=== PATIENT | female | born 1955 | race Caucasian/White ===

== ENCOUNTER 2017-02-24 13:56 | Outpatient (CLI) | payer MEDICARE, OTHER ==
[2015-12-28 14:27] VITALS: BP 145/82
[2017-02-24 14:56] LABS: BASOPHILS % 0.6 (0.0-1.5); EOSINOPHILS % 2.1 % (0.0-6.8); LYMPHOCYTES # 1.7 # k/uL (0.6-4.0); MEAN CORPUSCULAR HEMOGLOBIN 27.9 pg (28.0-34.0); MONOCYTES # 0.2 # k/uL (0.0-0.9); MONOCYTES % 3.9 % (0.0-11.0); NEUTROPHILS # 3.4 # k/uL (1.4-7.7)
[2017-02-24 14:57] LABS: APPEARANCE,URINE Clear (CLEAR); COLOR,URINE Yellow (YELLOW); OCCULT BLOOD,URINE Trace-intact (NEGATIVE); UROBILINOGEN URINE 0.2 Eu (0.2-1.0)
[2017-02-24 15:19] LABS: eGFR (African) > 60; eGFR (Non-African) > 60
== END 2017-02-24 13:57 ==
LOC: NEPHRO 13:56
PROVIDERS: ATTEND Internal Medicine Nephrology
DX: E11.9 Type 2 diabetes mellitus without complications (principal); I10 Essential (primary) hypertension
CPT/HCPCS: 36415; 80053; 81002; 83036; 85025; G0463

== ENCOUNTER 2017-05-05 15:17 | Outpatient (CLI) | payer MEDICARE, OTHER ==
[2015-12-28 14:27] VITALS: BP 145/82
== END 2017-05-05 15:18 ==
LOC: NEPHRO 15:17
PROVIDERS: ATTEND Internal Medicine Nephrology
DX: E11.9 Type 2 diabetes mellitus without complications (principal); Z98.84 Bariatric surgery status
CPT/HCPCS: G0463

== ENCOUNTER 2017-05-13 10:32 | Outpatient (CLI) | payer MEDICARE, OTHER ==
[2015-12-28 14:27] VITALS: BP 145/82
[2017-05-13 10:59] LABS: eGFR (African) > 60; eGFR (Non-African) > 60
== END 2017-05-13 10:33 ==
LOC: LAB 10:32
PROVIDERS: ATTEND Internal Medicine Nephrology
DX: E11.9 Type 2 diabetes mellitus without complications (principal)
CPT/HCPCS: 36415; 80053; 83036

== ENCOUNTER 2017-09-15 14:57 | Outpatient (CLI) | payer MEDICARE, OTHER ==
[2015-12-28 14:27] VITALS: BP 145/82
== END 2017-09-15 15:00 ==
LOC: NEPHRO 14:57
PROVIDERS: ATTEND Internal Medicine Nephrology
DX: M06.9 Rheumatoid arthritis, unspecified (principal); R73.9 Hyperglycemia, unspecified; Z98.84 Bariatric surgery status
CPT/HCPCS: G0463

== ENCOUNTER 2017-12-15 14:47 | Outpatient (CLI) | payer MEDICARE, OTHER ==
[2015-12-28 14:27] VITALS: BP 145/82
== END 2017-12-15 14:50 ==
LOC: NEPHRO 14:47
PROVIDERS: ATTEND Internal Medicine Nephrology
DX: I10 Essential (primary) hypertension (principal); E11.9 Type 2 diabetes mellitus without complications
CPT/HCPCS: G0463

== ENCOUNTER 2018-05-31 08:57 | Outpatient (CLI) | payer MEDICARE, OTHER ==
[2015-12-28 14:27] VITALS: BP 145/82
[2018-05-31 09:25] LABS: BASOPHILS % 0.5 (0.0-1.5); EOSINOPHILS % 3.9 % (0.0-6.8); MEAN CORPUSCULAR HEMOGLOBIN 30.1 pg (28.0-34.0); MONOCYTES % 4.3 % (0.0-11.0)
[2018-05-31 09:43] LABS: eGFR (African) > 60; eGFR (Non-African) > 60
== END 2018-05-31 09:00 ==
LOC: LAB 08:57
PROVIDERS: ATTEND Internal Medicine Nephrology
DX: I10 Essential (primary) hypertension (principal); E11.9 Type 2 diabetes mellitus without complications
CPT/HCPCS: 36415; 80053; 83036; 85025

== ENCOUNTER 2018-06-01 14:11 | Outpatient (CLI) | payer MEDICARE, OTHER ==
[2015-12-28 14:27] VITALS: BP 145/82
== END 2018-06-01 14:13 ==
LOC: NEPHRO 14:11
PROVIDERS: ATTEND Internal Medicine Nephrology
DX: R73.9 Hyperglycemia, unspecified (principal); I10 Essential (primary) hypertension
CPT/HCPCS: G0463

== ENCOUNTER 2019-02-01 15:06 | Outpatient (CLI) | payer MEDICARE, OTHER ==
[2015-12-28 14:27] VITALS: BP 145/82
== END 2019-02-01 15:08 ==
LOC: NEPHRO 15:06
PROVIDERS: ATTEND Internal Medicine Nephrology
DX: N17.9 Acute kidney failure, unspecified (principal); I10 Essential (primary) hypertension; E11.8 Type 2 diabetes mellitus with unspecified complications; E66.01 Morbid (severe) obesity due to excess calories; M06.9 Rheumatoid arthritis, unspecified; Z68.31 Body mass index [BMI] 31.0-31.9, adult
CPT/HCPCS: G0463

== ENCOUNTER 2019-06-14 14:51 | Outpatient (CLI) | payer MEDICARE, OTHER ==
[2015-12-28 14:27] VITALS: BP 145/82
== END 2019-06-14 14:53 ==
LOC: NEPHRO 14:51
PROVIDERS: ATTEND Internal Medicine Nephrology
DX: M00.9 Pyogenic arthritis, unspecified (principal); I10 Essential (primary) hypertension
CPT/HCPCS: 99213

== ENCOUNTER 2019-08-16 14:41 | Outpatient (CLI) | payer MEDICARE, OTHER ==
[2015-12-28 14:27] VITALS: BP 145/82
== END 2019-08-16 15:15 ==
LOC: NEPHRO 14:41
PROVIDERS: ATTEND Internal Medicine Nephrology
DX: E11.9 Type 2 diabetes mellitus without complications (principal); I10 Essential (primary) hypertension
CPT/HCPCS: 99213; G0463